=== PATIENT | female | born 1945 | race Caucasian/White ===

== ENCOUNTER → 2017-01-26 | Outpatient (CLI) | payer MEDICARE ==
--- NOTE | 2017-01-26 12:33 | P.STRESS ---
- Stress Test Note Stress Test Results/Findings: Exam Performed: stress test Exam Date: 01/26/17 Height: 5 ft 3 in Weight: 61.235 kg Protocol: evangelina Stage: 2 Duration of Exercise: 7:00 Resting Heart Rate: 70 Resting Blood Pressure: 141/88 Maximum Achieved Heart Rate: 160 Maximum Achieved Blood Pressure: 205/87 85% PMHR: 128 100% PMHR: 141 METS: 8.5 Technologist Comment: Stress Test Results/Findings: Baseline rhythm is sinus mechanism, normal axis and intervals. Patient exercised for 7 minutes reaching a peak rate of 160 bpm which is equal 105% maximum predicted heart rate. Test was terminated secondary to fatigue there was no chest pain. EKG changes shows no evidence of ST segment changes. Impression: 1. Average exercise tolerance. 2. Normal EKG response to exercise with no evidence of ischemic changes.
== END | disposition home or self-care (01) ==
LOC: RADNMMAIN 10:28
PROVIDERS: ATTEND Family Medicine
DX: R94.31 Abnormal electrocardiogram [ECG] [EKG] (principal)
CPT/HCPCS: 93017

== ENCOUNTER → 2017-05-02 | Outpatient (CLI) | payer MEDICARE | LOC: RADBDWWP 12:41 | PROVIDERS: ATTEND Family Medicine | DX: Z12.31 Encounter for screening mammogram for malignant neoplasm of breast (principal); Z13.820 Encounter for screening for osteoporosis; Z53.9 Procedure and treatment not carried out, unspecified reason ==

== ENCOUNTER → 2017-05-02 | Outpatient (CLI) | payer MEDICARE ==
--- NOTE | 2017-05-03 11:13 | MM ---
Reason for exam: screening (asymptomatic). Last mammogram was performed 1 year and 1 month ago. History: Patient is postmenopausal. Took estrogen for 10 years. Took progesterone for 10 years. Taking other hormone. Physical Findings: A clinical breast exam by your physician is recommended on an annual basis and results should be correlated with mammographic findings. MG 3D Screening Mammo W/Cad Bilateral CC and MLO view(s) were taken. Prior study comparison: April 06, 2016, bilateral MG 3d screening mammo w/cad. December 03, 2014, bilateral MG screening mammo w CAD. No suspicious abnormality. No significant changes when compared with prior studies. ASSESSMENT: Negative, BI-RAD 1 RECOMMENDATION: Routine screening mammogram of both breasts in 1 year.
== END | disposition home or self-care (01) ==
LOC: RADMAMWWP 12:56
PROVIDERS: ATTEND Family Medicine
DX: Z12.31 Encounter for screening mammogram for malignant neoplasm of breast (principal)
CPT/HCPCS: 77063; G0202

== ENCOUNTER → 2017-05-03 | Outpatient (CLI) | payer MEDICARE ==
--- NOTE | 2017-05-03 16:13 | BD ---
EXAMINATION TYPE: MG DEXA axial skeleton. DATE OF EXAM: 05/03/2017 COMPARISON: 2014 CLINICAL HISTORY: screening osteoporosis Height: 5'2 Weight: 134 FRAX RISK QUESTIONS: Alcohol (3 or more units per day): no Family History (Parent hip fracture): no Glucocorticoids (More than 3mos): no (Ex: prednisone, prednisolone, methylprednisolone, dexamethasone, and hydrocortisone). History of Fracture in Adulthood: no Secondary Osteoporosis: 1. Type 1 Diabetes: no 2. Hyperthyroidism: no 3. Menopause before 45: no 4. Malnutrition: no 5. Chronic liver disease: no Rheumatoid Arthritis: no Current Tobacco Use: no RISK FACTORS HISTORY OF: Postmenopausal woman: MEDICATIONS: Osteoporosis Medications: Which medication: Evista How Lon years Additional Medications: Additional History: EXAM MEASUREMENTS: Bone mineral densitometry was performed using the [employer] System. Bone mineral density as measured about the Lumbar spine is: ----- L1-L4(G/cm2): 1.090 T Score Values are as follows: ----- L2: -0.8 ----- L3: -1.0 ----- L4: -0.5 ----- L1-L4: -0.8 Bone mineral density has: Decreased -1.7% since study of: 12/03/2014 Bone mineral density about the R hip (g/cm2): 0.968 Bone mineral density about the L hip (g/cm2): 0.882 T Score values are as follows: -----R Neck: -0.5 -----L Neck: -1.1 -----R Total: -0.1 -----L Total: 0.2 Bone mineral density has: Increased 1.0% since study of: 12/03/2014 IMPRESSION: Osteopenia (T Score between -2.5 and -1) as noted by T score values with regards to the left femur an d normal values with regards to the right femur. There is slightly increased risk of fracture and the patient may be considered for treatment. Re-Screen 2-5 years. NOTE: T-SCORE=SD OF THE YOUNG ADULT MEAN.
== END | disposition home or self-care (01) ==
LOC: RADBDWWP 14:14
PROVIDERS: ATTEND Family Medicine
DX: M85.852 Other specified disorders of bone density and structure, left thigh (principal)
CPT/HCPCS: 77080

== ENCOUNTER → 2018-04-27 | Outpatient (CLI) | payer MEDICARE ==
--- NOTE | 2018-04-30 10:45 | MM ---
Reason for exam: screening (asymptomatic). Last mammogram was performed 1 year ago. History: Patient is postmenopausal. Took estrogen for 10 years. Took progesterone for 10 years. Taking other hormone. Physical Findings: A clinical breast exam by your physician is recommended on an annual basis and results should be correlated with mammographic findings. MG 3D Screening Mammo W/Cad Bilateral CC and MLO view(s) were taken. XCCL view(s) were taken of the right breast. Prior study comparison: May 02, 2017, bilateral MG 3d screening mammo w/cad. April 06, 2016, bilateral MG 3d screening mammo w/cad. There are scattered fibroglandular densities. There are benign appearing round vascular calcifications bilaterally, greater in the left breast. ASSESSMENT: Benign, BI-RAD 2 RECOMMENDATION: Routine screening mammogram of both breasts in 1 year.
== END | disposition home or self-care (01) ==
LOC: RADMAMWWP 07:30
PROVIDERS: ATTEND Family Medicine
DX: Z12.31 Encounter for screening mammogram for malignant neoplasm of breast (principal)
CPT/HCPCS: 77063; 77067

== ENCOUNTER 2018-05-26 05:16 | Emergency (ER) | payer MEDICARE ==
[2018-05-26] MEDS ORDERED: KETOROLAC 30 MG/ML 1 ML VIAL IVP STA (05:41)
--- NOTE | 2018-05-26 05:45 | ED ---
Abdominal Pain HPI - General Chief Complaint: Abdominal Pain Stated Complaint: back pain Time Seen by Provider: 05/26/18 05:30 Source: patient Mode of arrival: wheelchair Limitations: no limitations - History of Present Illness Initial Comments: This patient is 73-year-old woman who presents to be evaluated for right flank pain. She states the pain started on Monday. She initially thought that it was related to some raking she had done the day before. She indicates the right flank and states that the pain is constant. She states that it feels like a bruise. She does note that it gets worse with movement. The pain tonight became very severe area she did take some Tylenol and then had vomiting afterward. Other than that she has not had associated symptoms. She did see her physician on Monday and he was going to prescribe a steroid to take but the prescription had not been called in for them. MD Complaint: flank pain Onset/Timin -: days(s) Location: R flank Radiation: none Migration to: no migration Severity: severe Quality: other (Like a bruise) Consistency: constant Improves With: nothing Worsens With: movement Associated Symptoms: vomiting Treatments Prior to Arrival: other (Tylenol) - Related Data Home Medications Medication Instructions Recorded Confirmed Latanoprost Ophth [Xalatan 0.005%] 1 drops BOTH EYES HS 11/13/13 11/15/13 Raloxifene [Evista] 60 mg PO DAILY 11/13/13 11/15/13 Previous Rx's Medication Instructions Recorded Methocarbamol [Robaxin-750] 750 mg PO TID PRN #30 tablet 05/26/18 Allergies Allergy/AdvReac Type Severity Reaction Status Date / Time No Known Allergies Allergy Verified 05/26/18 05:25 Review of Systems ROS Statement: Those systems with pertinent positive or pertinent negative responses have been documented in the HPI. ROS Other: All systems not noted in ROS Statement are negative. Constitutional: Denies: fever, chills Respiratory: Denies: cough, dyspnea Cardiovascular: Denies: chest pain, palpitations, edema Gastrointestinal: Reports: as per HPI, abdominal pain, nausea, vomiting. Denies : diarrhea, constipation, melena, hematochezia Genitourinary: Denies: dysuria, hematuria Musculoskeletal: Denies: back pain Skin: Denies: rash Neurological: Denies: headache, weakness, numbness Past Medical History Additional Past Medical History / Comment(s): glaucoma History of Any Multi-Drug Resistant Organisms: None Reported Past Surgical History: Hysterectomy Additional Past Surgical History / Comment(s): meniscus repair. right foot surgery for plantar fasciitis Past Anesthesia/Blood Transfusion Reactions: No Reported Reaction Past Psychological History: No Psychological Hx Reported Smoking Status: Never smoker General Exam Limitations: no limitations General appearance: alert, in no apparent distress Head exam: Present: atraumatic, normocephalic Eye exam: Present: normal appearance. Absent: scleral icterus, conjunctival injection ENT exam: Present: normal oropharynx Respiratory exam: Present: normal lung sounds bilaterally. Absent: respiratory distress, wheezes, rales, rhonchi, stridor Cardiovascular Exam: Present: regular rate, normal rhythm, normal heart sounds. Absent: systolic murmur, diastolic murmur, rubs, gallop GI/Abdominal exam: Present: soft. Absent: distended, tenderness, guarding, rebound, rigid, mass Extremities exam: Present: normal inspection, normal capillary refill. Absent: pedal edema, calf tenderness Back exam: Present: normal inspection. Absent: CVA tenderness (R), CVA tenderness (L) Skin exam: Present: warm, dry, intact, normal color. Absent: rash Course Vital Signs 05/26/18 05/26/18 05:20 07:24 Temperature 98.2 F 97.5 F L Pulse Rate 73 70 Respiratory 28 H 18 Rate Blood Pressure 182/108 149/77 O2 Sat by Pulse 100 97 Oximetry Medical Decision Making - Medical Decision Making This patient is 73-year-old woman who is having flank and back pain that she states feels like a bruise but severe, and started after she had been doing raking. She was having what appeared to be a fair amount of discomfort and therefore had workup including labs and CT. There is a small amount of microscopic hematuria but the patient states that she has had this for years and has seen urology previously. I did discuss following with them. The patient states that she wants to try to take the prescription that her physician gave her. We discussed return parameters as well as appropriate follow-up care. She has had almost total resolution of symptoms with the analgesic here. - Lab Data Result diagrams: 05/26/18 05:38 05/26/18 05:38 Lab Results 05/26/18 05/26/1818 Range/Units 05:38 05:38 06:43 WBC 8.0 (3.8-10.6) k/uL RBC 4.85 (3.80-5.40) m/uL Hgb 14.9 (11.4-16.0) gm/dL Hct 46.4 H (34.0-46.0) % MCV 95.7 (80.0-100.0) fL MCH 30.7 (25.0-35.0) pg MCHC 32.1 (31.0-37.0) g/dL RDW 12.8 (11.5-15.5) % Plt Count 226 (150-450) k/uL Neutrophils % 49 % Lymphocytes % 35 % Monocytes % 5 % Eosinophils % 5 % Basophils % 0 % Neutrophils # 4.0 (1.3-7.7) k/uL Lymphocytes # 2.8 (1.0-4.8) k/uL Monocytes # 0.4 (0-1.0) k/uL Eosinophils # 0.4 (0-0.7) k/uL Basophils # 0.0 (0-0.2) k/uL Sodium 143 (137-145) mmol/L Potassium 4.1 (3.5-5.1) mmol/L Chloride 108 H (98-107) mmol/L Carbon Dioxide 27 (22-30) mmol/L Anion Gap 8 mmol/L BUN 21 H (7-17) mg/dL Creatinine 0.54 (0.52-1.04) mg/dL Est GFR (CKD-EPI)AfAm >90 (>60 ml/min/1.73 sqM) Est GFR (CKD-EPI)NonAf >90 (>60 ml/min/1.73 sqM) Glucose 109 H (74-99) mg/dL Calcium 9.5 (8.4-10.2) mg/dL Total Bilirubin 0.4 (0.2-1.3) mg/dL AST 41 H (14-36) U/L ALT 49 (9-52) U/L Alkaline Phosphatase 68 (38-126) U/L Total Protein 7.5 (6.3-8.2) g/dL Albumin 4.3 (3.5-5.0) g/dL Amylase 106 (30-110) U/L Lipase 169 (23-300) U/L Urine Color Yellow Urine Appearance Cloudy H (Clear) Urine pH 7.0 (5.0-8.0) Ur Specific [place] 1.019 (1.001-1.035) Urine Protein Trace H (Negative) Urine Glucose (UA) Negative (Negative) Urine Ketones Negative (Negative) Urine Blood Small H (Negative) Urine Nitrite Negative (Negative) Urine Bilirubin Negative (Negative) Urine Urobilinogen <2.0 (<2.0) mg/dL Ur Leukocyte Esterase Moderate H (Negative) Urine RBC 24 H (0-5) /hpf Urine WBC 9 H (0-5) /hpf Urine Mucus Occasional H (None) /hpf Urine Yeast (Budding) Moderate H (None) /hpf Disposition Clinical Impression: Flank pain Disposition: HOME SELF-CARE Condition: Good Instructions: Flank Pain (ED) Prescriptions: Methocarbamol [Robaxin-750] 750 mg PO TID PRN #30 tablet PRN Reason: pain Is patient prescribed a controlled substance at d/c from ED?: No Referrals: Marcelo Singh DO [Primary Care Provider] - 1-2 days
[2018-05-26 05:52] LABS: Basophils % (A) 0 %; Eosinophils # (A) 0.4 k/uL (0-0.7); Eosinophils % (A) 5 %; HCT 46.4 % (34.0-46.0); HGB 14.9 gm/dL (11.4-16.0); Lymphocytes # (A) 2.8 k/uL (1.0-4.8); Lymphocytes % (A) 35 %; MCH 30.7 pg (25.0-35.0); MCHC 32.1 g/dL (31.0-37.0); MCV 95.7 fL (80.0-100.0); Mean Platelet Volume 7.1; Monocytes # (A) 0.4 k/uL (0-1.0); Monocytes % (A) 5 %; Neutrophils % (A) 49 %; Platelet Count 226 k/uL (150-450); RBC 4.85 m/uL (3.80-5.40); RDW 12.8 % (11.5-15.5)
[2018-05-26 06:00] LABS: ALT 49 U/L (9-52); AST 41 U/L (14-36); Albumin 4.3 g/dL (3.5-5.0); Alkaline Phosphatase 68 U/L (38-126); Amylase 106 U/L (30-110); Anion Gap 8 mmol/L; Blood Urea Nitrogen 21 mg/dL (7-17); Calcium 9.5 mg/dL (8.4-10.2); Carbon Dioxide 27 mmol/L (22-30); Chloride 108 mmol/L (98-107); Glucose 109 mg/dL (74-99); Lipase 169 U/L (23-300); Potassium 4.1 mmol/L (3.5-5.1); Sodium 143 mmol/L (137-145); Total Bilirubin 0.4 mg/dL (0.2-1.3); Total Protein 7.5 g/dL (6.3-8.2)
--- NOTE | 2018-05-26 06:41 | CT ---
EXAMINATION TYPE: CT abdomen pelvis wo con DATE OF EXAM: 05/26/2018 COMPARISON: None HISTORY: Rt sided abdominal, back pain CT DLP: 392.9 mGycm Automated exposure control for dose reduction was used. TECHNIQUE: Helical acquisition of images was performed from the lung bases through the pelvis. FINDINGS: Heart is enlarged. Lung bases are clear of consolidation. There is no pleural effusion. Liver shows n o focal defect. Gallbladder appears normal. Spleen appears normal. There is no pancreatic mass. Bile ducts are not dilated. There is no adrenal mass. Kidneys show no hydronephrosis. Ureters are not dilated. There is no retrop eritoneal adenopathy. Bladder distends smoothly. There is no inguinal hernia. There is no free fluid in the pelvis. There are a few sigmoid diverticula. I see no sign of diverticulitis. There is no mese nteric edema or adenopathy. I see no evidence of a bowel obstruction. There is no free air. There is no ascites. Lumbar spine is intact. The bony pelvis appears intact. Appendix is not definitely seen. There is no sign of appendicitis. IMPRESSION: NO EVIDENCE OF RENAL STONE OR OBSTRUCTION. Appendix not seen. No sign of acute abdomen and pelvis. Mi ld sigmoid diverticulosis.
[2018-05-26] MEDS ORDERED: MORPHINE SULFATE 4 MG/ML SYRINGE IV STA (06:44)
[2018-05-26 07:15] LABS: Appearance,Urine Cloudy (Clear); Bilirubin,Urine Negative (Negative); Blood,Urine Small (Negative); Budding Yeast,Urine Moderate /hpf; Color,Urine Yellow; Glucose,Urine (UA) Negative (Negative); Ketones,Urine Negative (Negative); Leukocyte Esterase,Urine Moderate (Negative); Mucus,Urine Occasional /hpf; Nitrite,Urine Negative (Negative); Protein,Urine Trace (Negative); RBC,Urine 24 /hpf (0-5); Specific Gravity,Urine 1.019 (1.001-1.035); Urobilinogen,Urine <2.0 mg/dL (<2.0); WBC,Urine 9 /hpf (0-5)
[2018-05-26 07:25] VITALS: BP 149/77; PULSE 70; RESP 18; TEMP 97.5
== END 2018-05-26 08:12 | disposition home or self-care (01) ==
LOC: EC 05:16
DX: R10.9 Unspecified abdominal pain (principal); M54.9 Dorsalgia, unspecified; R11.10 Vomiting, unspecified; Z90.710 Acquired absence of both cervix and uterus; Z79.899 Other long term (current) drug therapy
CPT/HCPCS: 36415; 80053; 82150; 83690; 85025; 81001; 74176; 99284; 96374; 96375; J2270; J1885

== ENCOUNTER 2019-06-26 07:21 | Day surgery (SDC) | payer MEDICARE ==
[2019-06-24 16:10] VITALS: BMI 23.6
[~2019-06-26 07:21] MED LIST: LACTATED RINGERS 1,000 ML IV SCH; LIDOCAINE 1% 20 ML VIAL (10MG/ML) FOR IV START INTRADERMA PRN
[2019-06-26 07:51] VITALS: RESP 16; TEMP 97.6
[2019-06-26] MEDS ORDERED: PROPOFOL 10 MG/ML 20 ML VIAL IV ONE (08:13)
--- NOTE | 2019-06-26 08:37 | P.PCN ---
Date of Procedure: 06/26/19 Procedure(s) Performed: BRIEF HISTORY: Patient is a 74-year-old pleasant female scheduled for an elective colonoscopy as a part of evaluation of prior history of colon polyps. Last colonoscopy was 5 years ago. PROCEDURE PERFORMED: Colonoscopy. PREOPERATIVE DIAGNOSIS: She of colon. IV sedation per Anesthesia. PROCEDURE: After informed consent was obtained, the patient, was brought into the endoscopy unit. IV sedation was administered by Anesthesia under continuous monitoring. Digital rectal examination was normal. Initially the Olympus CF-160 flexible video colonoscope was then inserted in the rectum, gradually advanced into the sigmoid colon and further advancement was not possible. Scope was removed and a. Colonoscope was then introduced into the rectum and gradually advanced into the cecum without any difficulty. Careful examination was performed as the scope was gradually being withdrawn. Ileocecal valve and the appendiceal orifice were visualized and appeared normal. Prep was excellent. Mucosa of the cecum, ascending colon, transverse colon, descending colon, sigmoid colon, and rectum appeared normal. Scattered sigmoid diverticula seen. Retroflexion was performed in the rectum and no lesions were seen. The patient tolerated the procedure well. IMPRESSION: Normal-appearing colon from rectum to cecum with no evidence of colorectal neoplasia Scattered sigmoid diverticulosis. RECOMMENDATIONS: Findings of this examination were discussed with the patient as well as a family. She was advised to have a repeat surveillance colonoscopy in 5 years from now because of the prior history of colon polyps..
[2019-06-26 08:59] VITALS: BP 121/76; PULSE 72
== END 2019-06-26 09:16 | disposition home or self-care (01) ==
LOC: ORWHC2ENDO 07:21
PROVIDERS: ATTEND Internal Medicine Gastroenterology
DX: Z12.11 Encounter for screening for malignant neoplasm of colon (principal); K57.30 Diverticulosis of large intestine without perforation or abscess without bleeding; Z86.010 Personal history of colon polyps; H40.9 Unspecified glaucoma; Z79.810 Long term (current) use of selective estrogen receptor modulators (SERMs)
CPT/HCPCS: G0105; J2704

== ENCOUNTER → 2019-07-26 | Outpatient (CLI) | payer MEDICARE ==
--- NOTE | 2019-07-26 09:53 | BD ---
EXAMINATION TYPE: Axial Bone Density DATE OF EXAM: 07/26/2019 COMPARISON: DEXA bone scan December 03, 2014 CLINICAL HISTORY: Postmenopausal female. Height: 62.5 Weight: 132.6 FRAX RISK QUESTIONS: Alcohol (3 or more units per day): no Family History (Parent hip fracture): no Glucocorticoids (More than 3mos): no (Ex: prednisone, prednisolone, methylprednisolone, dexamethasone, and hydrocortisone). History of Fracture in Adulthood: no Secondary Osteoporosis: 1. Type 1 Diabetes: no 2. Hyperthyroidism: no 3. Menopause before 45: yes 4. Malnutrition: no 5. Chronic liver disease: no Rheumatoid Arthritis: no Current Tobacco Use: no RISK FACTORS HISTORY OF: Family History of Osteoporosis: unsure Active: yes Diet low in dairy products/other sources of calcium: yes Postmenopausal woman: age 34 approximately Lost more than 2 inches in height since high school: no MEDICATIONS: Caltrate, biotin, vitamins, latanoprost, restatis Osteoporosis Medications: Evista Additional History: EXAM MEASUREMENTS: Bone mineral densitometry was performed using the [employer] System. Bone mineral density as measured about the Lumbar spine is: ----- L1-L4(G/cm2): 1.072 T Score Values are as follows: ----- L2: -1.1 ----- L3: -1.1 ----- L4: -0.8 ----- L1-L4: -0.9 Bone mineral density has: decreased -2.2 % since study of: 05.03.2017 Bone mineral density about the R hip (g/cm2): 0.952 Bone mineral density about the L hip (g/cm2): 0.902 T Score values are as follows: -----R Neck: -0.6 -----L Neck: -1.0 -----R Total: 0.2 -----L Total: -0.3 Bone mineral density has: decreased -0.1 % since study of: 05.03.2017 IMPRESSION: Osteopenia (T Score between -2.5 and -1) as identified on 2 consecutive levels in the low back. There remains slightly increased risk of fracture and the patient may be considered for treatment. Re-Screen 2-5 years. NOTE: T-SCORE=SD OF THE YOUNG ADULT MEAN.
--- NOTE | 2019-07-26 14:09 | MM ---
Reason for exam: screening (asymptomatic). Last mammogram was performed 1 year and 3 months ago. History: Patient is postmenopausal. Took estrogen for 10 years. Took progesterone for 10 years. Taking other hormone. Physical Findings: A clinical breast exam by your physician is recommended on an annual basis and results should be correlated with mammographic findings. MG 3D Screening Mammo W/Cad Bilateral CC and MLO view(s) were taken. Prior study comparison: April 27, 2018, bilateral MG 3d screening mammo w/cad. May 02, 2017, bilateral MG 3d screening mammo w/cad. There are scattered fibroglandular densities. There are benign appearing round vascular calcifications bilaterally. There is no discrete abnormality. ASSESSMENT: Benign, BI-RAD 2 RECOMMENDATION: Routine screening mammogram of both breasts in 1 year.
== END | disposition home or self-care (01) ==
LOC: RADBDWWP 09:13
PROVIDERS: ATTEND Family Medicine
DX: Z12.31 Encounter for screening mammogram for malignant neoplasm of breast (principal); M85.89 Other specified disorders of bone density and structure, multiple sites
CPT/HCPCS: 77063; 77067; 77080

== ENCOUNTER → 2019-08-14 | Outpatient (CLI) | payer MEDICARE ==
--- NOTE | 2019-08-15 09:19 | XR ---
Cervical spine HISTORY: Neck pain 3 views of the cervical spine There is anterolisthesis grade 1 C3-4, C4-5 and C5-6. Cervical vertebral bodies show preserved height and bone mineralization. Facet arthropathy changes are present. Overlying artifact noted. Loss of di sc height present at C6-7. There is mild spondylosis. Prevertebral soft tissues are normal. IMPRESSION: Degenerative disc disease and facet arthropathy.
== END | disposition home or self-care (01) ==
LOC: RADXRMAIN 16:00
PROVIDERS: ATTEND Family Medicine
DX: M50.30 Other cervical disc degeneration, unspecified cervical region (principal); M46.92 Unspecified inflammatory spondylopathy, cervical region
CPT/HCPCS: 72050

== ENCOUNTER → 2020-07-28 | Outpatient (CLI) | payer MEDICARE ==
--- NOTE | 2020-07-30 13:53 | MM ---
Reason for exam: screening (asymptomatic). Last mammogram was performed 1 year ago. History: Patient is postmenopausal. Took estrogen for 10 years. Took progesterone for 10 years. Taking other hormone. Physical Findings: A clinical breast exam by your physician is recommended on an annual basis and results should be correlated with mammographic findings. MG 3D Screening Mammo W/Cad Bilateral CC and MLO view(s) were taken. Prior study comparison: July 26, 2019, bilateral MG 3d screening mammo w/cad. April 27, 2018, bilateral MG 3d screening mammo w/cad. There are scattered fibroglandular densities. Benign oil cyst calcifications. No significant changes when compared with prior studies. ASSESSMENT: Negative, BI-RAD 1 RECOMMENDATION: Routine screening mammogram of both breasts in 1 year.
== END | disposition home or self-care (01) ==
LOC: RADMAMWWP 15:45
PROVIDERS: ATTEND Family Medicine
DX: Z12.31 Encounter for screening mammogram for malignant neoplasm of breast (principal)
CPT/HCPCS: 77063; 77067

== ENCOUNTER → 2021-08-10 | Outpatient (CLI) | payer MEDICARE ==
--- NOTE | 2021-08-11 09:09 | MM ---
Reason for exam: screening (asymptomatic). Last mammogram was performed 1 year ago. History: Patient is postmenopausal. Took estrogen for 10 years. Took progesterone for 10 years. Taking other hormone. Physical Findings: A clinical breast exam by your physician is recommended on an annual basis and results should be correlated with mammographic findings. MG 3D Screening Mammo W/Cad Bilateral CC and MLO view(s) were taken. Prior study comparison: July 28, 2020, bilateral MG 3d screening mammo w/cad. July 26, 2019, bilateral MG 3d screening mammo w/cad. There are scattered fibroglandular densities. Benign bilateral oil cyst and vascular calcifications. No significant changes when compared with prior studies. ASSESSMENT: Negative, BI-RAD 1 RECOMMENDATION: Routine screening mammogram of both breasts in 1 year.
== END | disposition home or self-care (01) ==
LOC: RADMAMWWP 07:01
PROVIDERS: ATTEND Family Medicine
DX: Z12.31 Encounter for screening mammogram for malignant neoplasm of breast (principal); Z78.0 Asymptomatic menopausal state
CPT/HCPCS: 77063; 77067

== ENCOUNTER → 2021-08-17 | Outpatient (CLI) | payer MEDICARE ==
[2021-08-17 18:22] LABS: ALT 17 U/L (8-44); AST 24 U/L (13-35)
== END | disposition home or self-care (01) ==
LOC: LABWHC1 13:55
PROVIDERS: ATTEND Podiatrist
DX: L94 Other localized connective tissue disorders (principal)
CPT/HCPCS: 36415; 84450; 84460

== ENCOUNTER 2022-01-28 09:31 | Day surgery (SDC) | payer MEDICARE ==
[2022-01-27 13:07] VITALS: BMI 23.3
[~2022-01-28 09:31] MED LIST changes: -LIDOCAINE 1% 20 ML VIAL (10MG/ML) FOR IV START INTRADERMA PRN
[2022-01-28 10:09] VITALS: TEMP 96.1
[2022-01-28] MEDS ORDERED: GLYCOPYRROLATE 0.2 MG/ML 2 ML VIAL ONE (11:52)
[2022-01-28] MEDS ORDERED: PROPOFOL 10 MG/ML 20 ML VIAL IV ONE (11:52)
--- NOTE | 2022-01-28 12:18 | P.PCN ---
Date of Procedure: 01/28/22 Procedure(s) Performed: BRIEF HISTORY: Patient is a 76-year-old pleasant white female scheduled for an elective colonoscopy as a part of evaluation of prior history of colon polyps. Recently had an episode of acute lower abdominal pain followed by rectal bleeding that lasted for an hour and symptoms subsided. PROCEDURE PERFORMED: Colonoscopy. PREOPERATIVE DIAGNOSIS: History of colon polyps. IV sedation per Anesthesia. PROCEDURE: After informed consent was obtained, the patient, was brought into the endoscopy unit. IV sedation was administered by Anesthesia under continuous monitoring. Digital rectal examination was normal. Initially the Olympus CF-160 flexible video pediatric colonoscope was then inserted in the rectum, gradually advanced into the cecum moderate difficulty difficulty. Careful examination was performed as the scope was gradually being withdrawn. Ileocecal valve and the a ppendiceal orifice were visualized and appeared normal. Prep was excellent. Mucosa of the cecum, ascending colon, transverse colon, descending colon, sigmoid colon, and rectum appeared normal. Scattered sigmoid diverticulosis seen. Retroflexion was performed in the rectum and no lesions were seen. The patient tolerated the procedure well. IMPRESSION: Normal-appearing colon from rectum to cecum with no evidence of colorectal neoplasia. Scattered sigmoid diverticulosis. RECOMMENDATIONS: Findings of this examination were discussed with the patient as well as a family she was advised to be a high-fiber diet and take fiber supplements a regular basis. Recommend repeat screening colonoscopy in 10 years..
[2022-01-28 12:46] VITALS: BP 134/74; PULSE 71; RESP 15
== END 2022-01-28 13:00 | disposition home or self-care (01) ==
LOC: ORWHC2ENDO 09:31
PROVIDERS: ATTEND Internal Medicine Gastroenterology
DX: K57.30 Diverticulosis of large intestine without perforation or abscess without bleeding (principal); Z86.010 Personal history of colon polyps; I10 Essential (primary) hypertension; Z79.899 Other long term (current) drug therapy; Z80.8 Family history of malignant neoplasm of other organs or systems
CPT/HCPCS: 45378; J2704

== ENCOUNTER → 2022-08-11 | Outpatient (CLI) | payer MEDICARE ==
--- NOTE | 2022-08-12 09:21 | MM ---
Reason for Exam: Screening (asymptomatic). Last screening mammogram was performed 12 month(s) ago. Patient History: Menarche at age 14. First Full-Term at age 23. Left ovary removed at age 40. Hysterectomy at age 40. Postmenopausal. Patient used Estrogen for 10 years. Patient used Progesterone for 10 years. Risk Values: Yin 5 year model risk: 1.6%. NCI Lifetime model risk: 3.4%. Prior Study Comparison: 07/26/2019 Bilateral Screening Mammogram, [facility]. 07/28/2020 Bilateral Screening Mammogram, [facility]. 08/10/2021 Bilateral Screening Mammogram, [facility]. Tissue Density: There are scattered fibroglandular densities. Findings: Analyzed By CAD. There are few scattered benign-appearing round and vascular calcifications bilaterally redemonstrated. There is no suspicious new group of microcalcifications or new suspicious mass in either breast. Overall Assessment: Benign, BI-RAD 2 Management: Screening Mammogram of both breasts in 1 year. A clinical breast exam by your physician is recommended on an annual basis and results should be correlated with mammographic findings. Electronically signed and approved by: Trey Henriquez M.D.
== END | disposition home or self-care (01) ==
LOC: RADMAMWWP 11:38
PROVIDERS: ATTEND Family Medicine
DX: Z12.31 Encounter for screening mammogram for malignant neoplasm of breast (principal); Z78.0 Asymptomatic menopausal state
CPT/HCPCS: 77063; 77067

== ENCOUNTER → 2023-08-15 | Outpatient (CLI) | payer MEDICARE ==
--- NOTE | 2023-08-16 08:12 | MM ---
Reason for Exam: Screening (asymptomatic). Last screening mammogram was performed 12 month(s) ago. Patient History: Menarche at age 14. First Full-Term at age 23. Left ovary removed at age 40. Hysterectomy at age 40. Postmenopausal. Patient used Estrogen for 10 years. Patient used Progesterone for 10 years. Risk Values: Yin 5 year model risk: 1.6%. NCI Lifetime model risk: 3.2%. Prior Study Comparison: 07/28/2020 Bilateral Screening Mammogram, [facility]. 08/10/2021 Bilateral Screening Mammogram, [facility]. 08/11/2022 Bilateral MG 3D screening mammo w/cad, [facility]. Tissue Density: There are scattered fibroglandular densities. Findings: Analyzed By CAD. There is no suspicious group of microcalcifications or new suspicious mass in either breast. Overall Assessment: Benign, BI-RAD 2 Management: Screening Mammogram of both breasts in 1 year. . Patient should continue monthly self-breast exams. A clinical breast exam by your physician is recommended on an annual basis. This exam should not preclude additional follow-up of suspicious palpable abnormalities. Note on Yin scores and lifetime risk: 1. A Yin score greater than 3% is considered moderate risk. If this is the case, consider specialist referral to assess eligibility for a risk reducing agent. 2. If overall lifetime risk for the development of breast cancer is 20% or higher, the patient may qualify for future screening with alternating mammogram and breast MRI. Electronically signed and approved by: Manjit Kay M.D. Radiologis
== END | disposition home or self-care (01) ==
LOC: RADMAMWWP 10:30
PROVIDERS: ATTEND Family Medicine
DX: Z12.31 Encounter for screening mammogram for malignant neoplasm of breast (principal); Z78.0 Asymptomatic menopausal state
CPT/HCPCS: 77063; 77067

== ENCOUNTER → 2023-12-29 | Outpatient (CLI) | payer MEDICARE ==
--- NOTE | 2023-12-29 09:13 | CT ---
EXAMINATION TYPE: CT brain wo con DATE OF EXAM: 12/29/2023 COMPARISON: None HISTORY: Follow up subdural hematoma CT DLP: [address] of the brain was performed. The ventricles, basal cisterns and sulci overlying the cerebral convexities demonstrate mild enlargem ent. There is nonacute right-sided subdural collection noted measuring 2.1 cm in greatest transverse dimension. No evidence for midline shift. There is no evidence for intracranial hemorrhage or sulcal effacement. There is decreased attenuation about the periventricular white matter and deep white matter of both c erebral hemispheres, compatible with chronic small vessel ischemia. Differential diagnosis does inclu de demyelination. No mass effects are seen.No midline shift. Osseous calvarium is intact. If symptoms persist consider MRI. IMPRESSION: There is nonacute right-sided subdural collection noted measuring 2.1 cm in greatest transverse dime nsion. No evidence for midline shift. 1. Age related atrophic and chronic small vessel ischemic change without acute intracranial process s een at this time.
== END | disposition home or self-care (01) ==
LOC: RADCTMAIN 06:33
PROVIDERS: ATTEND Family Medicine
DX: I67.82 Cerebral ischemia (principal)
CPT/HCPCS: 70450

== ENCOUNTER → 2024-01-22 | Outpatient (CLI) | payer MEDICARE ==
--- NOTE | 2024-01-22 09:27 | CT ---
EXAMINATION TYPE: CT brain wo con CT DLP: 983.2 mGycm, Automated exposure control for dose reduction was used. DATE OF EXAM: 01/22/2024 8:34 AM COMPARISON: 12/29/2023. CLINICAL INDICATION:Female, 78 years old with history of S06.5XXA traumatic subdural hemorrhage, subd ural hemorrhage. TECHNIQUE: Brain: Axial CT images of the brain were obtained with coronal and sagittal reformats created and rev iewed. Contrast used: None. Oral contrast used: None. FINDINGS: Brain: Extra-axial spaces: And extends the extra-axial fluid collection along the right subdural space is no t significantly changed compared to prior. No acute hemorrhage identified. There is mild leftward kaylynn ft of the cerebrum and this region bleed measures up to 20 mm which is not significantly changed from prior. Ventricular system: Within normal limits Cerebral parenchyma: No acute intraparenchymal hemorrhage or mass effect. The boggs-white junction is well differentiated. Cerebellum: Unremarkable. Mass effect: No evidence of midline shift. Intracranial vasculature: Atherosclerotic calcifications of the intracranial vessels. Soft tissues: Normal. Calvarium/osseous structures: No depressed skull fracture. Paranasal sinuses and mastoid air cells: Mild scattered paranasal sinus disease. Visualized orbits: Bilateral aphakia IMPRESSION: Redemonstration of right subdural hemorrhage measuring up to 19 mm which is not significantly changed from 12/29/2023. No evidence for acute hemorrhage. Mild leftward shift of the cerebrum in this region .
== END | disposition home or self-care (01) ==
LOC: RADCTMAIN 08:08
PROVIDERS: ATTEND Neurological Surgery
DX: S06.5XAA Traumatic subdural hemorrhage with loss of consciousness status unknown, initial encounter (principal)
CPT/HCPCS: 70450

== ENCOUNTER → 2024-03-08 | Outpatient (CLI) | payer MEDICARE ==
--- NOTE | 2024-03-26 12:43 | CT ---
Patient: Marlys Turner Ordering Physician: Unknown, Unknown ID: [id number] Phone, Pager: Phone: N /A Pager: N/A : [phone] Age/Gender: 78Y, F Primary Location: N/A Procedure: CT brain wo con Stud y Date: 03/08/2024 11:18:00 AM EXAMINATION TYPE: CT brain wo con DATE OF EXAM: 03/08/2024 COMPARISON: 02/03/2024 INDICATION: Subdural hematoma DLP: 1159 mGycm, Automated exposure control for dose reduction was used. CONTRAST: None CT of the brain is performed utilizing 3 mm thick sections through the posterior fossa and 3 mm thick sections through the remaining calvarium. Study is performed within 24 hours of arrival to the hosp ital. No abnormal hyperdensity is present to suggest an acute intracranial hemorrhage. Previous old right s ubdural hematoma is largely resolved. Very minimal residual may be in the right frontal region with the depth 0.3 cm. No significant effacement of sulci or displacement of the brain is evident. No midl ine shift is evident. Ventricles and sulci appear appropriate for the patient's age. No mass lesion is evident. No acute infarcts are evident. Coastal thickening is seen in the maxillary sinuses. Postsurgical changes are within ethmoid air cell s. Frontal sinuses are clear. Right Sphenoid sinus has some mild mucosal thickening. IMPRESSION: 1. Very minimal residual right subdural hematoma may remain present. No significant mass effect on the adjacent brain. 2. Post surgical changes right frontal and parietal calvarium.
== END | disposition home or self-care (01) ==
LOC: RADMRIMAIN 10:00
PROVIDERS: ATTEND Neurological Surgery
DX: S06.5XAA Traumatic subdural hemorrhage with loss of consciousness status unknown, initial encounter (principal); Z98.890 Other specified postprocedural states
CPT/HCPCS: 70450

== ENCOUNTER 2024-06-08 19:49 | Emergency (ER) | payer MEDICARE ==
[2024-06-08 19:52] VITALS: TEMP 98.1
--- NOTE | 2024-06-08 20:46 | US ---
EXAMINATION TYPE: US venous doppler duplex LE RT DATE OF EXAM: 06/08/2024 8:37 PM COMPARISON: NONE CLINICAL INDICATION: Female, 79 years old with history of posterior thigh pain; Hx HTN; Patient denie s any other signs, symptoms, or relevant history, TECHNIQUE: The lower extremity deep venous system is examined utilizing real time linear array sonog susan with graded compression, color doppler sonography, and spectral doppler. SIDE PERFORMED: Right FINDINGS: VESSELS IMAGED: Common Femoral Vein Deep Femoral Vein Femoral Vein Popliteal Vein Proximal Calf Veins Right Leg: Negative for DVT, Color Doppler imaging shows patency of the vessels. Spectral waveforms are within normal limits. IMPRESSION: No ultrasound evidence for deep venous thrombosis. [facility], , 06/08/2024 8:44 PM
[2024-06-08 21:10] VITALS: BP 165/90; PULSE 76; RESP 18
--- NOTE | 2024-06-08 21:20 | ED ---
Extremity Problem HPI - General Chief complaint: Extremity Problem,Nontraumatic Stated complaint: Pain in right leg Time Seen by Provider: 06/08/24 21:19 Source: patient, RN notes reviewed Mode of arrival: ambulatory Limitations: no limitations - History of Present Illness Initial comments: 79-year-old female presented to ER with a chief complaint of right posterior thigh pain. Patient reports for the last day she has been experiencing a consistent sharp pain to her posterior thigh. Pain does not radiate. She denies any known injuries or traumas. Patient states she recently traveled to [place] and [place] within the last month and a half. She denies any history of blood clots, blood thinning medications, smoking. Patient denies any calf pain, pain with ambulation or weakness. Family, at bedside, states patient was on a ladder hanging Talia lights shortly before pain started. Patient has not taken anything for pain at this time. She was sent here by urgent care for further evaluation. Patient denies back pain or history of. patient has no other complaints. - Related Data Home Medications Medication Instructions Recorded Confirmed Latanoprost Ophth [Xalatan 0.005%] 1 drops BOTH EYES HS 11/13/13 01/28/22 Biotin [Biotin Disolve] 5,000 mcg PO DAILY 06/24/19 01/28/22 Calcium Carbonate/Vitamin D3 1 each PO BID 06/24/19 01/28/22 [Calcium 600-Vit D3 200 Tablet] Cholecalciferol (Vitamin D3) 2,000 unit PO DAILY 06/24/19 01/28/22 [Vitamin D3] Eye Caps 1 tab PO HS 06/24/19 01/28/22 Alendronate Sodium [Fosamax] 70 mg PO TH 01/27/22 01/28/22 cycloSPORINE 0.05% OPHTH SOLN 1 applicator BOTH EYES Q12H 01/27/22 01/28/22 [Restasis] lisinopriL [Zestril] 2.5 mg PO DAILY 01/27/22 01/28/22 Allergies Allergy/AdvReac Type Severity Reaction Status Date / Time No Known Allergies Allergy Verified 06/08/24 19:52 Review of Systems ROS Statement: Those systems with pertinent positive or pertinent negative responses have been documented in the HPI. ROS Other: All systems not noted in ROS Statement are negative. Past Medical History Past Medical History: Hypertension, Osteoarthritis (OA) Additional Past Medical History / Comment(s): glaucoma, ELEVATED TRIGLYCERIDES, History of Any Multi-Drug Resistant Organisms: None Reported Past Surgical History: Hysterectomy Additional Past Surgical History / Comment(s): LEFT KNEE ARTHROSCOPIC-meniscus repair, right foot surgery for plantar fasciitis, COLONOSCOPY X2 Past Anesthesia/Blood Transfusion Reactions: No Reported Reaction Past Psychological History: No Psychological Hx Reported Smoking Status: Never smoker Past Alcohol Use History: None Reported Past Drug Use History: None Reported - Past Family History Mother Family Medical History: Cancer Additional Family Medical History / Comment(s): THYROID CANCER General Exam Limitations: no limitations General appearance: alert, in no apparent distress Respiratory exam: Present: normal lung sounds bilaterally. Absent: respiratory distress, wheezes, rales, rhonchi, stridor Cardiovascular Exam: Present: regular rate, normal rhythm, normal heart sounds. Absent: systolic murmur, diastolic murmur, rubs, gallop, clicks Extremities exam: Present: normal inspection, full ROM, tenderness (Right posterior thigh lateral aspect. There is no overlying skin changes.), normal capillary refill. Absent: pedal edema, joint swelling, calf tenderness Neurological exam: Present: alert, oriented X3, CN II-XII intact Skin exam: Present: warm, dry, intact, normal color. Absent: rash Course Vital Signs 06/08/24 06/08/24 19:50 21:09 Temperature 98.1 F Pulse Rate 75 76 Respiratory 17 18 Rate Blood Pressure 191/84 165/90 O2 Sat by Pulse 96 99 Oximetry Medical Decision Making - Medical Decision Making Was pt. sent in by a medical professional or institution (, PA, CLIENT ACCOUNT SPECIALIST, urgent care, hospital, or longterm...) When possible be specific @ -No Did you speak to anyone other than the patient for history (EMS, parent, family, police, friend...)? What history was obtained from this source @ -Family, at bedside, aiding in HPI. Did you review nursing and triage notes (agree or disagree)? Why? @ -I reviewed and agree with nursing and triage notes Were old charts reviewed (outside hosp., previous admission, EMS record, old EKG, old radiological studies, urgent care reports/EKG's, longterm records)? Report findings @ -No old charts were reviewed Differential Diagnosis (chest pain, altered mental status, abdominal pain women, abdominal pain men, vaginal bleeding, weakness, fever, dyspnea, syncope, heada nadege, dizziness, GI bleed, back pain, seizure, CVA, palpatations, mental health, musculoskeletal)? @ -Differential Musculoskeletal: Muscular strain, contusion, ligament sprain, fracture, arthritis, septic arthritis, bursitis, cellulitis, muscle spasm, nerve compression, DVT, arterial occlusion, herpes zoster, electrolyte abnormality, tumor.... This is not meant to be in all inclusive list EKG interpreted by me (3pts min.). @ -[None done X-rays interpreted by me (1pt min.). @ -None done CT interpreted by me (1pt min.). @ -None done U/S interpreted by me (1pt. min.). @ -US venous Doppler right lower extremity negative for evidence of DVT. What testing was considered but not performed or refused? (CT, X-rays, U/S, labs)? Why? @ -None What meds were considered but not given or refused? Why? @ -None Did you discuss the management of the patient with other professionals (professionals i.e. , PA, CLIENT ACCOUNT SPECIALIST, lab, RT, psych nurse, social welfare clerk, user experience developer, teacher, chief sustainability officer, high risk case manager)? Give summary @ -No Was smoking cessation discussed for >3mins.? @ -No Was critical care preformed (if so, how long)? @ -No Were there social determinants of health that impacted care today? How? (Homelessness, low income, unemployed, alcoholism, drug addiction, transportation, low edu. Level, literacy, decrease access to med. care, correction, rehab)? @ -No Was there de-escalation of care discussed even if they declined (Discuss DNR or withdrawal of care, Hospice)? DNR status @ -No What co-morbidities impacted this encounter? (DM, HTN, Smoking, COPD, CAD, Cancer, CVA, ARF, Chemo, Hep., AIDS, mental health diagnosis, sleep apnea, morbid obesity)? @ -Hx of brain bleed cannot take ibuprofen. Was patient admitted / discharged? Hospital course, mention meds given and route, prescriptions, significant lab abnormalities, going to OR and other pertinent info. @ -Discharge. 79-year-old female presented to the ER with a chief complaint of posterior right thigh pain. History and physical exam completed. Vitals withinPatient is hypertensive on arrival 191/84. Patient does report a history of hypertension and takes medications as prescribed. She has not taken her nighttime medications at this time. She is denying any current chest pain, shortness of breath, weakness, dizziness or lightheadedness. Examination of right lower extremity remarkable for pinpoint tenderness to right posterior thigh. Pain does not radiate. Right lower extremity neurovascular intact. No overlying skin changes. Ultrasound will be performed due to atraumatic pain and recent travel. Ultrasound negative for evidence of DVT. Patient given Tylenol for pain control. Pain believed to be musculoskeletal in nature. Patient stable for discharge. Patient discharged with a starter pack of Flexeril. Strict return parameters discussed. Patient discharged in stable condition with follow-up to PCP. Patient verbally expressed understanding and agreement with care plan. Case discussed with ED attending, Dr. Haywood. Undiagnosed new problem with uncertain prognosis? @ -No Drug Therapy requiring intensive monitoring for toxicity (Heparin, Nitro, Insulin, Cardizem)? @ -No Were any procedures done? @ -No Diagnosis/symptom? @ -Thigh pain Acute, or Chronic, or Acute on Chronic? @ -Acute Uncomplicated (without systemic symptoms) or Complicated (systemic symptoms)? @ -Uncomplicated Side effects of treatment? @ -No Exacerbation, Progression, or Severe Exacerbation? @ -No Poses a threat to life or bodily function? How? (Chest pain, USA, NV, pneumonia, PE, COPD, DKA, ARF, appy, cholecystitis, CVA, Diverticulitis, Homicidal, Suicidal, threat to staff... and all critical care pts) @ -No - Radiology Data Radiology results: report reviewed, image reviewed Disposition Clinical Impression: Thigh pain Disposition: HOME SELF-CARE Condition: Stable Additional Instructions: You may take [id number] Tylenol for pain control. Continue to massage and ambulate. Beware Flexeril may make you drowsy. Follow-up with PCP. Return to the ER for any new or worsening concerns. Is patient prescribed a controlled substance at d/c from ED?: No Referrals: Marcelo Singh DO [Primary Care Provider] - 1-2 days Time of Disposition: 21:20
[2024-06-08] MEDS: ACETAMINOPHEN TAB 500 MG TAB PO STA (21:22)
[2024-06-08] MEDS: CYCLOBENZAPRINE 10MG STARTER 3 TAB BTL PO STA (21:22)
== END 2024-06-08 22:10 | disposition home or self-care (01) ==
LOC: EC 19:49
DX: M79.651 Pain in right thigh (principal); Z90.710 Acquired absence of both cervix and uterus; Z87.820 Personal history of traumatic brain injury
CPT/HCPCS: 99283

== ENCOUNTER → 2024-07-02 | Outpatient (CLI) | payer MEDICARE ==
--- NOTE | 2024-07-02 11:03 | BD ---
EXAMINATION TYPE: Axial Bone Density DATE OF EXAM: 07/02/2024 CLINICAL HISTORY: 79 years old Female. ICD-10 CODE: M81.0 AGE RELATED OSTEO , Additional History: Height: 5 ft 2 in Weight: 133 FRAX RISK QUESTIONS: Alcohol (3 or more units per day): no Family History (Parent hip fracture): no Glucocorticoids (More than 3mos): no (Ex: prednisone, prednisolone, methylprednisolone, dexamethasone, and hydrocortisone). History of Fracture in Adulthood: no Secondary Osteoporosis: 1. Type 1 Diabetes: no 2. Hyperthyroidism: no 3. Menopause before 45: no 4. Malnutrition: no 5. Chronic liver disease: no Rheumatoid Arthritis: no Current Tobacco Use: no RISK FACTORS HISTORY OF: Surgery to Spine/Hip(right/left)/Wrist (right/left): no MEDICATIONS: Thyroid Medications: none Osteoporosis Medications: yes Which medication: alendronate How Lon-6 years EXAM MEASUREMENTS: Bone mineral densitometry was performed using the Pelikon System. Bone mineral density as measured about the Lumbar spine is: ----- L1-L4(G/cm2): 1.123 T Score Values are as follows: ----- L1: -0.8 ----- L2: -0.9 ----- L3: -0.5 ----- L4: -0.1 ----- L1-L4: -0.5 Z Score Values are as follows: ----- L1: 1.2 ----- L2: 1.0 ----- L3: 1.5 ----- L4: 1.8 ----- L1-L4: 1.5 Bone mineral density has: decreased -0.8 % since study of: 2021 Bone mineral density about the R hip (g/cm2): 0.922 Bone mineral density about the L hip (g/cm2): 0.919 T Score values are as follows: -----R Neck: -0.8 -----L Neck: -0.9 -----R Total: 0.4 -----L Total: -0.1 Z Score values are as follows: -----R Neck: 1.3 -----L Neck: 1.3 -----R Total: 2.3 -----L Total: 1.9 Bone mineral density has: increased 1.4 % since study of: 2021 FRAX%s: The graph provided illustrates a 10.1 % chance for a major osteoporotic fx and a 1.6 % chance for the hips probability for fx in 10 years time. IMPRESSION: Normal (Values between +1 and -1 indicate normal bone mass). Consider repeating this study in 5 year s or sooner if there is some new clinical indication. NOTE: T-SCORE=SD OF THE YOUNG ADULT MEAN. [facility], , 07/02/2024 11:00 AM
== END | disposition home or self-care (01) ==
LOC: RADBDWWP 09:00
PROVIDERS: ATTEND Family Medicine
DX: M81.0 Age-related osteoporosis without current pathological fracture (principal)
CPT/HCPCS: 77080

== ENCOUNTER → 2025-02-11 | Outpatient (CLI) | payer MEDICARE ==
--- NOTE | 2025-02-11 13:15 | CT ---
EXAMINATION TYPE: CT brain wo con DATE OF EXAM: 02/11/2025 COMPARISON: 09/06/2024 CLINICAL INDICATION: Female, 79 years old with history of [id number] TRAUM SUBDR HEM WITH LOC STATUS UNK NOWN, I; PHH, SUBDURAL HEMATOMA CT DLP: 1229.90 mGycm Automated exposure control for dose reduction was used. Findings: There is a right-sided craniotomy. The ventricles, basal cisterns and sulci over the convexities are moderately enlarged consistent with moderate generalized atrophy. There is no mass effect or shift of midline structures. There is mild diffuse decreased density in the periventricular white matter consistent with mild septic cleaner chevy ischemic white matter demyelination. There is no acute intra or extra-axial hemorrhage. There is no evidence of right-sided subdural hemat jana The posterior fossa including the brainstem, fourth ventricle and cerebellar pontine angles appear no rmal. Intraorbital contents appear normal and symmetric. Moderate chronic inflammatory changes in the maxillary sinuses and sphenoid sinus. The mastoid air ce lls are well aerated. The calvarium is intact. IMPRESSION: 1. No acute bleed or mass effect. No recurrent subdural hematoma. 2. Right-sided craniotomy defect. 3. Mild senescent changes as described above [facility], , 02/11/2025 1:12 PM
== END | disposition home or self-care (01) ==
LOC: RADCTMAIN 12:49
PROVIDERS: ATTEND Neurological Surgery
DX: S06.5XAA Traumatic subdural hemorrhage with loss of consciousness status unknown, initial encounter (principal); G93.89 Other specified disorders of brain
CPT/HCPCS: 70450